=== PATIENT | male | born 1990 | race Caucasian/White ===

== ENCOUNTER 2018-02-21 16:40 | Emergency (ER) | payer BC, OTHER ==
[2018-02-21 16:41] VITALS: BMI 26.4
[2018-02-21 17:12] VITALS: BP 132/75; PULSE 78; RESP 18; TEMP 97.5; O2SAT 98
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
[2018-02-21] MEDS ORDERED: Naproxen 550 mg Tab PO STA (17:13)
--- NOTE | 2018-02-22 10:33 | RAD ---
Date of service: 02/21/2018 PROCEDURE: Cervical Spine Radiographs. HISTORY: Pain. COMPARISON: None available. FINDINGS: BONES: Alignment maintained. No fracture. Dens Intact. DISC SPACES: Normal. SOFT TISSUES: Normal. No prevertebral soft tissue swelling. OTHER FINDINGS: None. IMPRESSION: Normal cervical spine radiographs
--- NOTE | 2018-02-22 11:03 | RAD ---
Date of service: 02/21/2018 PROCEDURE: Radiographs of the Left Shoulder HISTORY: pain COMPARISON: No prior. FINDINGS: BONES: Normal. No fracture. JOINTS: Normal. Glenohumeral and acromioclavicular joints preserved. No osteoarthritis. SOFT TISSUES: Normal. OTHER FINDINGS: None. IMPRESSION: Normal radiographs of the left shoulder.
== END 2018-02-21 18:41 | disposition home or self-care (01) ==
LOC: ED 16:40
DX: S16.1XXA Strain of muscle, fascia and tendon at neck level, initial encounter (principal); S43.402A Unspecified sprain of left shoulder joint, initial encounter; V49.49XA Driver injured in collision with other motor vehicles in traffic accident, initial encounter; Y92.410 Unspecified street and highway as the place of occurrence of the external cause